=== PATIENT | female | born 1960 | race Caucasian/White ===

== ENCOUNTER → 2016-07-31 | Outpatient (CLI) | payer OTHER ==
--- NOTE | ~2016-07-31 | 2DMMODE ---
[facility] [place] [address] 2 D/M-MODE ECHOCARDIOGRAM Name: FREDY FLETCHER Room #: REG CL [facility]#: [id number] Admission: 07/31/16 Attend Phys: Stephon Rodriguez MD Discharge: Date of : 56 Date of Service: 07/31/16 0952 Report #: [id number] THIS REPORT FOR: //name// Transthoracic Echocardiography Ordering physician: Stephon Rodriguez Referring physician: Chase Saldaña Kitchen Clerk: Lolly Reyna Indications/History: Ascending aortic aneurysm. BP: 120 / HR: 50bpm Height: 52in Weight: 109.8lb 71 Study data: M-mode, complete 2D, complete spectral Doppler, and color Doppler. Location: Echo laboratory. Routine. Image quality was good. 2D measurements Normal Normal LVID ED 43.7mm 36-57 IVS ED 8.1mm 6-11 LVID ES 28.3mm 23-40 LVPW ED 8mm 6-11 LA volume 27ml/m2 16-28 AoRoot diam 31.9mm 21-37 index ED LVOT diameter 20mm 18-23 Findings: Left ventricle: The cavity size was normal. Wall thickness was normal. Systolic function was normal. The estimated ejection fraction was in the range of 55% to 60%. Wall motion was normal. Right ventricle: The cavity size was normal. Systolic function was normal. Right atrium: The atrium was normal in size. Left atrium: The atrium was normal in size. Volume index: 27ml/m2 (S). Aortic valve: Trileaflet; mildly thickened leaflets. Doppler: There was no stenosis. No regurgitation. Peak velocity: 125cm/s (S). [address] [address] 2 D/M-MODE ECHOCARDIOGRAM Name: FREDY FLETCHER Room #: REG M.R.#: [id number] Admission: 07/31/16 Attend Phys: Stephon Rodriguez MD Discharge: Date of : 56 Date of Service: 07/31/16 0952 Report #: [id number] Mitral valve: Structurally normal valve. Doppler: There was no evidence for stenosis. No regurgitation. Peak E-wave velocity: 86.4cm/s. Peak gradient: 3mm Hg (D). Peak A-wave velocity: 62.1cm/s. Tricuspid valve: Structurally normal valve. Doppler: There was no evidence for stenosis. Mild regurgitation. Regurgitant peak velocity: 207.8cm/s. Peak RV-RA gradient: 17mm Hg (S). Pulmonic valve: Structurally normal valve. Doppler: There was no evidence for stenosis. Trivial regurgitation. Pericardium: There was no pericardial effusion. Aorta: Aortic root: The aortic root was normal in size. Aorta aneurysm not visualized with ultrasound. Ascending aorta at the upper limits of normal in size. Pulmonary artery: Systolic pressure was estimated to be 22mm Hg. Diastolic function: Normal diastolic function. Systemic veins: Inferior vena cava: The vessel was normal in size; the respirophasic diameter changes were in the normal range (= 50%). Conclusions 1. Left ventricle: Systolic function was normal. The estimated ejection fraction was in the range of 55% to 60%. Wall motion was normal. Normal diastolic function. 2. Aortic valve: Trileaflet; mildly thickened leaflets. There was no stenosis. No regurgitation. 3. Mitral valve: Structurally normal valve. No regurgitation. 4. Pericardium, extracardiac: There was no pericardial effusion. 5. Aortic root: Aorta aneurysm not visualized with ultrasound. Ascending aorta at the upper limits of normal in size. 6. Pulmonary arteries: Systolic pressure was estimated to be 22mm Hg. <ELECTRONICALLY SIGNED> By: Mac Jimenez MD, FACC 07/31/16 1038 [id number] Mac Jimenez MD, FACC /sandra
== END ==
LOC: CV 08:56
DX: I71.2 Thoracic aortic aneurysm, without rupture (principal)

== ENCOUNTER → 2017-01-02 | Outpatient (CLI) | payer OTHER | LOC: RAD 03:54 | DX: Z12.31 Encounter for screening mammogram for malignant neoplasm of breast (principal) ==

== ENCOUNTER → 2018-01-05 | Outpatient (CLI) | payer OTHER | LOC: RAD 02:10 | DX: Z12.31 Encounter for screening mammogram for malignant neoplasm of breast (principal) ==

== ENCOUNTER → 2018-11-11 | Outpatient (CLI) | payer OTHER | LOC: NUC 10:25 | DX: M85.89 Other specified disorders of bone density and structure, multiple sites (principal); Z78.0 Asymptomatic menopausal state ==

== ENCOUNTER → 2019-01-08 | Outpatient (CLI) | payer OTHER | LOC: RAD 06:16 | DX: Z12.31 Encounter for screening mammogram for malignant neoplasm of breast (principal) ==

== ENCOUNTER → 2020-01-12 | Outpatient (CLI) | payer OTHER | LOC: BC 08:14 | PROVIDERS: ATTEND Obstetrics & Gynecology | DX: Z12.31 Encounter for screening mammogram for malignant neoplasm of breast (principal) ==

== ENCOUNTER → 2021-01-29 | Outpatient (CLI) | payer OTHER | LOC: RAD 08:25 | PROVIDERS: ATTEND Obstetrics & Gynecology | DX: Z12.31 Encounter for screening mammogram for malignant neoplasm of breast (principal) ==